=== PATIENT | female | born 1995 | race Two or more races ===

== ENCOUNTER 2019-11-29 09:22 | Outpatient (CLI) | payer OTHER ==
[~2019-11-29] VITALS: Ht 185.4 cm; Wt 47.6 kg
== END 2019-11-29 10:30 | disposition home or self-care (01) ==
LOC: OFIC 805 09:22
PROVIDERS: ATTEND Otolaryngology Otology & Neurotology
DX: H92.11 Otorrhea, right ear (principal); H72.01 Central perforation of tympanic membrane, right ear

== ENCOUNTER 2019-12-13 08:21 | Outpatient (CLI) | payer OTHER | END 2019-12-13 10:11 | disposition home or self-care (01) | LOC: OFIC 805 08:21 | PROVIDERS: ATTEND Otolaryngology Otology & Neurotology | DX: H92.11 Otorrhea, right ear (principal); H72.01 Central perforation of tympanic membrane, right ear ==

== ENCOUNTER 2020-07-31 14:01 | Outpatient (CLI) | payer BC | END 2020-07-31 17:35 | disposition home or self-care (01) | LOC: OFIC 805 14:01 | PROVIDERS: ATTEND Otolaryngology Otology & Neurotology | DX: H92.11 Otorrhea, right ear (principal); H72.01 Central perforation of tympanic membrane, right ear ==

== ENCOUNTER 2020-08-01 09:05 | Outpatient (CLI) | payer BC | END 2020-08-01 09:20 | disposition home or self-care (01) | LOC: TOM 09:05 | PROVIDERS: ATTEND Otolaryngology Otology & Neurotology | DX: J01.80 Other acute sinusitis (principal); H00-H59 Diseases of the eye and adnexa ==

== ENCOUNTER 2020-08-19 15:13 | Outpatient (CLI) | payer BC | END 2020-08-19 16:09 | disposition home or self-care (01) | LOC: OFIC 805 15:13 | PROVIDERS: ATTEND Otolaryngology Otology & Neurotology | DX: H92.11 Otorrhea, right ear (principal); H72.01 Central perforation of tympanic membrane, right ear ==

== ENCOUNTER 2020-08-30 09:19 | Day surgery (SDC) | payer BC ==
[2020-08-30] MEDS ORDERED: CILOXAN5 ML OTIC (14:11)
[2020-08-30] MEDS ORDERED: AMOXICILLIN500 MG PO (14:11)
[2020-08-30] MEDS ORDERED: ZOFRAN8 MG PO (14:12)
== END 2020-08-30 17:00 | disposition home or self-care (01) ==
LOC: CIR.AMB 09:19
PROVIDERS: ATTEND Otolaryngology Otology & Neurotology
DX: H90.0 Conductive hearing loss, bilateral (principal); Z20.822 Contact with and (suspected) exposure to COVID-19

== ENCOUNTER 2020-09-04 08:21 | Outpatient (CLI) | payer BC ==
[~2020-09-04 08:21] MED LIST: AMOXICILLIN500 MG PO; CILOXAN5 ML OTIC; ZOFRAN8 MG PO
== END 2020-09-04 08:56 | disposition home or self-care (01) ==
LOC: OFIC 805 08:21
PROVIDERS: ATTEND Otolaryngology Otology & Neurotology
DX: H92.11 Otorrhea, right ear (principal); H72.01 Central perforation of tympanic membrane, right ear

== ENCOUNTER 2020-10-02 13:24 | Outpatient (CLI) | payer BC | END 2020-10-02 14:14 | disposition home or self-care (01) | LOC: OFIC 805 13:24 | PROVIDERS: ATTEND Otolaryngology Otology & Neurotology | DX: H92.11 Otorrhea, right ear (principal); H72.01 Central perforation of tympanic membrane, right ear; H60.8X1 Other otitis externa, right ear ==